=== PATIENT | male | born 1970 | race Caucasian/White ===

== ENCOUNTER 2024-05-09 13:15 | Emergency (ER) | payer MEDICAID ==
[~2024-05-09] VITALS: Ht 190.5 cm; Wt 95.3 kg
[2024-05-09 13:16] VITALS: O2SAT 99
[2024-05-09] MEDS ORDERED: LIDOCAINE HCL 1% 20 ML VIAL ONE (14:43)
[2024-05-09] MEDS: LIDOCAINE HCL 1% 20 ML VIAL TP ONE (14:50)
[2024-05-09] MEDS ORDERED: NEOMY/BACITRA/POLYMYXIN B OINT UD PACKET TP ONE (15:13)
[2024-05-09] MEDS: NEOMY/BACITRA/POLYMYXIN B OINT UD PACKET TP ONE (15:17)
== END 2024-05-09 15:17 | disposition home or self-care (01) ==
LOC: ER 13:15
DX: S60.551A Superficial foreign body of right hand, initial encounter (principal); X58.XXXA Exposure to other specified factors, initial encounter; Y93.89 Activity, other specified; Y92.89 Other specified places as the place of occurrence of the external cause; Y99.8 Other external cause status
CPT/HCPCS: 99284; J3490; A4606; A4663